=== PATIENT | male | born 1945 | race Hispanic/Latino ===

== ENCOUNTER 2017-03-02 11:38 | Emergency (ER) | payer OTHER, MEDICARE ==
[2017-03-02] MEDS ORDERED: L.E.T. GEL 4%/0.5%/0.18% 3ML 3 ML/SYR SYG TP ONE (11:54)
[2017-03-02] MEDS ORDERED: ACETAMINOPHEN 325 MG TAB ONE (11:59)
[2017-03-02] MEDS ORDERED: TETANUS/DIPHTHERIA TOXOID [ADULT] 0.5 ML VIAL IM ONE (11:59)
== END 2017-03-02 13:30 | disposition home or self-care (01) ==
LOC: EDH 11:38
DX: S01.01XA Laceration without foreign body of scalp, initial encounter (principal); I10 Essential (primary) hypertension; E11.9 Type 2 diabetes mellitus without complications; I25.2 Old myocardial infarction; Z86.73 Personal history of transient ischemic attack (TIA), and cerebral infarction without residual deficits; Z88.8 Allergy status to other drugs, medicaments and biological substances; W18.39XA Other fall on same level, initial encounter; Y93.01 Activity, walking, marching and hiking; Y92.89 Other specified places as the place of occurrence of the external cause; Y99.8 Other external cause status
CPT/HCPCS: 70450; 72125; 90471; 90714; 93005

== ENCOUNTER 2018-07-07 15:34 | Emergency (ER) | payer OTHER, MEDICARE ==
[2018-07-07 16:39] LABS: BASOPHILS % (AUTO) 0.9 % (0.0-5.0); EOSINOPHILS % (AUTO) 2.3 % (0.0-8.0); HEMATOCRIT 38.1 % (42-54); LYMPHOCYTES % (AUTO) 18.4 % (21.0-51.0); MEAN CORPUSCULAR HEMOGLOBIN 30.2 pg (27.0-33.0); MEAN CORPUSCULAR HGB CONC 32.7 g/dL (32.0-36.0); MEAN CORPUSCULAR VOLUME 92.2 fL (79-99); MONOCYTES % (AUTO) 5.7 % (3.0-13.0); NEUTROPHILS % (AUTO) 72.7 % (40.0-77.0); PLATELET COUNT (AUTO) 277 K/uL (130-400); RED BLOOD CELL COUNT(AUTO) 4.13 MIL/uL (4.50-6.20); RED CELL DISTRIBUTION WIDTH 17.3 % (11.0-15.5); WHITE BLOOD COUNT (AUTO) 10.1 K/uL (4.8-10.8)
[2018-07-07 17:06] LABS: CREATININE 1.1 mg/dL (0.5-1.5); POTASSIUM 4.8 mmol/L (3.5-5.1)
[2018-07-07 17:10] LABS: ALBUMIN 3.4 g/dL (3.5-5.0); BILIRUBIN,TOTAL 0.2 mg/dL (0.2-1.0); TOTAL PROTEIN, SERUM 7.4 g/dL (6.0-8.3)
[2018-07-07 17:40] LABS: APPEARANCE,URINE Clear (CLEAR); BILIRUBIN,URINE Negative (NEGATIVE); COLOR,URINE Yellow (YELLOW); GLUCOSE, URINE (UA) >=1000 mg/dL (NEGATIVE); KETONES,URINE Negative (NEGATIVE); LEUKOCYTE ESTERASE ,URINE Negative (NEGATIVE); NITRATE,URINE Negative (NEGATIVE); OCCULT BLOOD,URINE Negative (NEGATIVE); PROTEIN,URINE Negative (NEGATIVE); UROBILINOGEN,URINE 0.2 mg/dL (0.2-1.0)
[2018-07-07 17:40] LABS: INR 0.94 (0.85-1.15); PARTIAL THROMBOPLASTIN TIME 26.9 SEC (26.3-35.5); PROTHROMBIN TIME 9.9 SEC (9.6-11.6)
[2018-07-07] MEDS ORDERED: TRAMADOL HCL 50 MG TABLET ONE (17:54)
[2018-07-07 17:57] LABS: RBC,URINE 0-1 /HPF (0-1)
[2018-07-07 17:58] LABS: BACTERIA,URINE Rare /HPF (None Seen); WBC,URINE 0-1 /HPF (0-1)
[2018-07-07 17:59] LABS: SQUAMOUS EPITHELIAL CELL,UR Few /HPF (0-2)
== END 2018-07-07 20:07 | disposition left against medical advice (07) ==
LOC: EDH 15:34
DX: M25.511 Pain in right shoulder (principal); K85.90 Acute pancreatitis without necrosis or infection, unspecified; R07.1 Chest pain on breathing; M25.561 Pain in right knee; E11.9 Type 2 diabetes mellitus without complications; I10 Essential (primary) hypertension; Z86.73 Personal history of transient ischemic attack (TIA), and cerebral infarction without residual deficits; I25.2 Old myocardial infarction; Z88.7 Allergy status to serum and vaccine; W01.0XXA Fall on same level from slipping, tripping and stumbling without subsequent striking against object, initial encounter; Z91.81 History of falling; Y93.89 Activity, other specified; Y92.89 Other specified places as the place of occurrence of the external cause; Y99.8 Other external cause status
CPT/HCPCS: 36415; 71101; 73030; 80053; 81001; 82550; 83690; 84484; 85025; 85610; 85730; 93005

== ENCOUNTER 2021-08-01 19:49 | Inpatient (IN) | payer OTHER, MEDICARE ==
[~2021-08-01] VITALS: Ht 167.6 cm; Wt 76.7 kg
[2021-08-01 22:45] LABS: BASOPHILS % (AUTO) 0.4 % (0.0-5.0); EOSINOPHILS % (AUTO) 0.9 % (0.0-8.0); LYMPHOCYTES % (AUTO) 15.6 % (21.0-51.0); MEAN CORPUSCULAR HEMOGLOBIN 31.9 pg (27.0-33.0); MEAN CORPUSCULAR HGB CONC 33.8 g/dL (32.0-36.0); MEAN CORPUSCULAR VOLUME 94.4 fL (79-99); MONOCYTES % (AUTO) 8.3 % (3.0-13.0); NEUTROPHILS % (AUTO) 73.9 % (40.0-77.0); PLATELET COUNT (AUTO) 265 K/uL (130-400); RED BLOOD CELL COUNT(AUTO) 3.92 MIL/uL (4.50-6.20); RED CELL DISTRIBUTION WIDTH 17.6 % (11.0-15.5); WHITE BLOOD COUNT (AUTO) 11.6 K/uL (4.8-10.8)
[2021-08-01 23:04] LABS: ALBUMIN 3.2 g/dL (3.5-5.0); BILIRUBIN,TOTAL 0.5 mg/dL (0.2-1.0); TOTAL PROTEIN, SERUM 7.4 g/dL (6.0-8.3)
[2021-08-01] MEDS ORDERED: 0.9%NACL 1000ML 1,000 ML IV ONE (23:30)
[2021-08-02 00:02] LABS: INR 1.05 (0.85-1.15); PROTHROMBIN TIME 11.4 SEC (9.6-11.6)
[2021-08-02 00:03] LABS: PARTIAL THROMBOPLASTIN TIME 30.2 SEC (26.3-35.5)
[2021-08-02] MEDS ORDERED: LABETALOL 20MG SYG IV PRN (03:30)
[2021-08-02] MEDS ORDERED: ONDANSETRON 4MG INJ IVP PRN (03:30)
[2021-08-02] MEDS ORDERED: LACTULOSE 20 GM/30 ML UDCUP PO PRN (03:30)
[2021-08-02] MEDS ORDERED: ACETAMINOPHEN 325 MG TAB PO PRN (03:30)
[2021-08-02 04:10] LABS: APPEARANCE,URINE CLEAR (CLEAR); BILIRUBIN,URINE NEGATIVE (NEGATIVE); COLOR,URINE YELLOW (YELLOW); GLUCOSE, URINE (UA) >=1000 mg/dL (NEGATIVE); KETONES,URINE NEGATIVE (NEGATIVE); LEUKOCYTE ESTERASE ,URINE TRACE (NEGATIVE); NITRATE,URINE NEGATIVE (NEGATIVE); OCCULT BLOOD,URINE NEGATIVE (NEGATIVE); PROTEIN,URINE 30 mg/dL (NEGATIVE); UROBILINOGEN,URINE 0.2 mg/dL (0.2-1.0)
[2021-08-02] MEDS: 0.9%NACL 1000ML 1,000 ML IV SCH ×2 (04:31→20:52)
[2021-08-02 04:43] LABS: BACTERIA,URINE Many /HPF (None Seen); RBC,URINE 0-1 /HPF (0-1)
[2021-08-02 04:44] LABS: SQUAMOUS EPITHELIAL CELL,UR Rare /HPF (0-2)
[2021-08-02] MEDS ORDERED: LORAZEPAM 2 MG/ML 1 ML VIAL IVP PRN ×2 (09:00)
[2021-08-02] MEDS ORDERED: LIDOCAINE HCL-MPF 1% 2ML VIAL IV PRN (09:30)
[2021-08-02] MEDS ORDERED: LIDOCAINE HCL MPF 1% 5ML VIAL IV PRN (09:30)
[2021-08-02] MEDS ORDERED: POTASSIUM CHLORIDE 20MEQ/100ML 100 ML IV PRN ×2 (09:30)
[2021-08-02] MEDS ORDERED: POTASSIUM CHLORIDE 10% ELIXIR 20 MEQ/15 ML UDCUP PO PRN (09:30)
[2021-08-02] MEDS ORDERED: GLUCAGON 1MG KIT 1 MG ML IM PRN (09:30)
[2021-08-02] MEDS ORDERED: LEVETIRACETAM 500 MG/5 ML SD VIAL IV SCH (09:30)
[2021-08-02] MEDS ORDERED: MAGNESIUM 2GM PREMIX 50ML 50 ML IV PRN (09:30)
[2021-08-02] MEDS ORDERED: KCL 20 MEQ ERTAB PO PRN (09:30)
[2021-08-02 09:40] LABS: ABG BASE EXCESS -9.4 mmol/L (-2.0-3.0); ABG HCO3 14.6 mmol/L (21.0-28.0); ABG OXYGEN SATURATION 97.9 % (95.0-99.0); ABG PCO2 28 mmHg (35-48)
[2021-08-02] MEDS: CEFTRIAXONE 1G VIAL IVP SCH (09:46)
[2021-08-02 13:30] VITALS: BP 132/62
[2021-08-02 16:00] VITALS: BP 144/69
[2021-08-02] MEDS ORDERED: IOHEXOL 350 MG/ML 100ML INFUS..BTL IV ONE (17:11)
[2021-08-02] MEDS ORDERED: METR-361 PO (18:35)
[2021-08-02] MEDS ORDERED: LINA5TAB PO (18:35)
[2021-08-02] MEDS ORDERED: PRAV40TA3 PO (18:35)
[2021-08-02] MEDS ORDERED: METH2.5T6 PO (18:35)
[2021-08-02] MEDS ORDERED: EMPA1TAB7 PO (18:35)
[2021-08-02] MEDS ORDERED: ALLO300T2 PO (18:35)
[2021-08-02] MEDS ORDERED: TAMS-1 PO (18:35)
[2021-08-02] MEDS ORDERED: BENA40TA92 PO (18:35)
[2021-08-02] MEDS ORDERED: GLIP10TA9 PO (18:35)
[2021-08-02] MEDS: ATORVASTATIN 40 MG TABLET PO SCH (19:30)
[2021-08-02] MEDS: LEVETIRACETAM 500 MG in 0.9%NACL 100ML 100 ML IV SCH (21:00)
[2021-08-02] MEDS: LEVETIRACETAM 500 MG/5 ML SD VIAL IV SCH (21:04)
[2021-08-02 21:06] VITALS: BP 155/66
[2021-08-02] MEDS: DEXTROSE 50%-WATER 50 ML DISP.SYRIN IV PRN (21:29)
[2021-08-02 23:59] VITALS: BP 136/58
[2021-08-03 04:35] LABS: HEMATOCRIT 33.3 % (42-54); MEAN CORPUSCULAR HEMOGLOBIN 31.5 pg (27.0-33.0); MEAN CORPUSCULAR HGB CONC 33.3 g/dL (32.0-36.0); MEAN CORPUSCULAR VOLUME 94.6 fL (79-99); RED BLOOD CELL COUNT(AUTO) 3.52 MIL/uL (4.50-6.20); RED CELL DISTRIBUTION WIDTH 17.3 % (11.0-15.5); WHITE BLOOD COUNT (AUTO) 7.9 K/uL (4.8-10.8)
[2021-08-03 04:36] VITALS: BP 140/58
[2021-08-03 04:51] LABS: CREATININE 0.5 mg/dL (0.5-1.5); MAGNESIUM 1.3 mg/dL (1.80-2.40); PHOSPHORUS 2.6 mg/dL (2.5-4.9); POTASSIUM 3.4 mmol/L (3.5-5.1)
[2021-08-03] MEDS: 0.9%NACL 1000ML 1,000 ML IV SCH ×2 (05:22→19:30)
[2021-08-03] MEDS: DEXTROSE 50%-WATER 50 ML DISP.SYRIN IV PRN (05:57)
[2021-08-03 08:00] VITALS: BP 152/58
[2021-08-03] MEDS: ASPIRIN 81 MG EC TAB PO SCH (08:30)
[2021-08-03] MEDS: CEFTRIAXONE 1G VIAL IVP SCH (08:30)
[2021-08-03] MEDS: LEVETIRACETAM 500 MG in 0.9%NACL 100ML 100 ML IV SCH ×2 (08:52→22:27)
[2021-08-03] MEDS: LEVETIRACETAM 500 MG/5 ML SD VIAL IV SCH ×2 (09:00→21:00)
[2021-08-03 12:00] VITALS: BP 138/55
[2021-08-03] MEDS ORDERED: GADOTERATE MEGLUMINE 10 MMOL/20 ML VIAL IV ONE (12:42)
[2021-08-03 16:00] VITALS: BP 158/72
[2021-08-03 20:39] VITALS: BP 167/80
[2021-08-03] MEDS: ATORVASTATIN 40 MG TABLET PO SCH (22:26)
[2021-08-04] VITALS: BP 109/55
[2021-08-04 04:53] VITALS: BP 122/53
[2021-08-04 08:00] VITALS: BP 142/62
[2021-08-04] MEDS: LEVETIRACETAM 500 MG/5 ML SD VIAL IV SCH (09:00)
[2021-08-04] MEDS: LEVETIRACETAM 500 MG in 0.9%NACL 100ML 100 ML IV SCH ×2 (09:23→21:40)
[2021-08-04] MEDS: CEFTRIAXONE 1G VIAL IVP SCH (09:23)
[2021-08-04] MEDS: ASPIRIN 81 MG EC TAB PO SCH (09:24)
[2021-08-04 12:00] VITALS: BP 138/70
[2021-08-04 16:00] VITALS: BP 147/63
[2021-08-04 20:00] VITALS: BP 156/67
[2021-08-04] MEDS: 0.9%NACL 1000ML 1,000 ML IV SCH (21:40)
[2021-08-04] MEDS: ATORVASTATIN 40 MG TABLET PO SCH (21:40)
[2021-08-05 08:00] VITALS: BP 160/76
[2021-08-05] MEDS ORDERED: COMPOUND IV MISC 1 EACH IVSOLN MISC PRN (08:30)
[2021-08-05] MEDS: LEVETIRACETAM 500 MG TABLET PO SCH ×2 (09:58→21:11)
[2021-08-05] MEDS: ASPIRIN 81 MG EC TAB PO SCH (09:58)
[2021-08-05] MEDS: CEFTRIAXONE 1G VIAL IVP SCH (09:58)
[2021-08-05 12:00] VITALS: BP 135/66
[2021-08-05 16:00] VITALS: BP 147/58
[2021-08-05 20:00] VITALS: BP 147/63
[2021-08-05] MEDS: ATORVASTATIN 40 MG TABLET PO SCH (21:11)
[2021-08-06 00:15] VITALS: BP 127/66
[2021-08-06 05:13] VITALS: BP 126/57
[2021-08-06 05:33] LABS: BASOPHILS % (AUTO) 0.6 % (0.0-5.0); EOSINOPHILS % (AUTO) 2.1 % (0.0-8.0); LYMPHOCYTES % (AUTO) 18.8 % (21.0-51.0); MEAN CORPUSCULAR HEMOGLOBIN 31.8 pg (27.0-33.0); MEAN CORPUSCULAR HGB CONC 34.6 g/dL (32.0-36.0); MEAN CORPUSCULAR VOLUME 91.9 fL (79-99); MONOCYTES % (AUTO) 10.5 % (3.0-13.0); NEUTROPHILS % (AUTO) 67.3 % (40.0-77.0); PLATELET COUNT (AUTO) 189 K/uL (130-400); RED BLOOD CELL COUNT(AUTO) 3.81 MIL/uL (4.50-6.20); RED CELL DISTRIBUTION WIDTH 17.2 % (11.0-15.5); WHITE BLOOD COUNT (AUTO) 7.2 K/uL (4.8-10.8)
[2021-08-06 05:46] LABS: ALBUMIN 2.2 g/dL (3.5-5.0); BILIRUBIN,TOTAL 2.6 mg/dL (0.2-1.0); CREATININE 0.6 mg/dL (0.5-1.5); POTASSIUM 4.1 mmol/L (3.5-5.1)
[2021-08-06 08:00] VITALS: BP 141/52
[2021-08-06] MEDS: ASPIRIN 81 MG EC TAB PO SCH (09:04)
[2021-08-06] MEDS: CEFTRIAXONE 1G VIAL IVP SCH (09:04)
[2021-08-06] MEDS: LEVETIRACETAM 500 MG TABLET PO SCH ×2 (09:04→15:11)
[2021-08-06 12:00] VITALS: BP 149/69
[2021-08-06] MEDS ORDERED: AEC81 PO (14:37)
[2021-08-06] MEDS ORDERED: LEVE-43 PO (14:47)
[2021-08-06 16:00] VITALS: BP 159/73
== END 2021-08-06 17:47 | disposition home or self-care (01) | DRG 64 ==
LOC: EDH 19:49 → EDHIP 08-02 03:00 → 4BH 08-02 13:08
PROVIDERS: ADMIT Internal Medicine Critical Care Medicine; ATTEND Internal Medicine Critical Care Medicine
DX: I63.40 Cerebral infarction due to embolism of unspecified cerebral artery (principal); I61.9 Nontraumatic intracerebral hemorrhage, unspecified; G81.94 Hemiplegia, unspecified affecting left nondominant side; E11.36 Type 2 diabetes mellitus with diabetic cataract; E78.00 Pure hypercholesterolemia, unspecified; E78.5 Hyperlipidemia, unspecified; I10 Essential (primary) hypertension; Z20.822 Contact with and (suspected) exposure to COVID-19; Z79.899 Other long term (current) drug therapy; I25.2 Old myocardial infarction; N40.0 Benign prostatic hyperplasia without lower urinary tract symptoms; Z96.653 Presence of artificial knee joint, bilateral; G40.909 Epilepsy, unspecified, not intractable, without status epilepticus
CPT/HCPCS: 36415; 36600; 70450; 70496; 70498; 70544; 70547; 70549; 70551; 70553; 72125; 80048; 80053; 81001; 82803; 82948; 83630; 83735; 84100; 84484; 85025; 85027; 85610; 85730; 87046; 87077; 87088; 87177; 87186; 87324; 87338; 87635; 92522; 92610; 93005; 93306; 93356; 97039; 99291; G0378; J0696; J1953; J3475; J3480; J3490; J7030; J7070; Q9967